=== PATIENT | male | born 1965 | race Caucasian/White ===

== ENCOUNTER 2022-02-23 14:59 | Inpatient (IN) | payer OTHER ==
[2022-02-23 17:20] VITALS: BMI 22.4
[2022-02-23] MEDS ORDERED: MAG HYDROX/AL HYDROX/SIMETH 30 ML UNIT-DOSE CUP PO PRN (18:33)
[2022-02-23] MEDS ORDERED: NICOTINE POLACRILEX 2 MG GUM BUC PRN (18:33)
[2022-02-23] MEDS ORDERED: IBUPROFEN 600 MG TABLET (FP) PO PRN (18:33)
[2022-02-23] MEDS ORDERED: MAGNESIUM CITRATE 300 ML BOTTLE PO PRN (18:33)
[2022-02-23] MEDS ORDERED: LOPERAMIDE HCL 2 MG CAPSULE PO PRN (18:33)
[2022-02-23] MEDS ORDERED: MAGNESIUM HYDROX 2400MG/30ML ORAL SUSPENSION 30 ML CUP PO PRN (18:33)
[2022-02-23] MEDS ORDERED: IBUPROFEN 400 MG TABLET (FP) PO PRN (18:33)
[2022-02-23] MEDS ORDERED: cloNIDine HCL 0.1 MG TABLET PO PRN (18:33)
[2022-02-23] MEDS ORDERED: methaDONE HCL 10 MG TABLET (FOR DETOX USE ONLY) PO ONE ×4 (18:33→23:00)
[2022-02-23] MEDS ORDERED: ACETAMINOPHEN 325 MG TABLET (FP) PO PRN ×2 (18:33)
[2022-02-23] MEDS ORDERED: BENZOCAINE/MENTHOL (CHLORASEPTIC ) LOZENGE MM PRN (18:33)
[2022-02-23] MEDS ORDERED: DICYCLOMINE HCL 10 MG CAPSULE PO PRN (18:33)
[2022-02-23] MEDS ORDERED: BISMUTH SUBSALICYLATE 524 MG/30 ML PO PRN (18:33)
[2022-02-23] MEDS ORDERED: NALOXONE HCL 0.4 MG/ML VIAL IM PRN (18:33)
[2022-02-23] MEDS ORDERED: TUBERCULIN PPD 5 TU/0.1ML SYRINGE (IN PATIENT USE ONLY) ID ONE (21:43)
[2022-02-23] MEDS: THIAMINE HCL 100 MG TABLET (FP) PO SCH (23:02)
[2022-02-23] MEDS: MELATONIN 5 MG TABLETS PO SCH (23:02)
[2022-02-24 09:07] LABS: HEMATOCRIT 39.7 % (35.4-49); HEMOGLOBIN 13.1 GM/dL (11.7-16.9); MCH 28.3 pg (25.7-33.7); MEAN CELL VOLUME 85.8 fl (80-96); MEAN PLT VOLUME 9.7 fl (7.5-11.1); PLATELET COUNT 243 10^3/uL (134-434); RBC 4.63 M/mm3 (4.00-5.60); WHITE BLOOD COUNT 11.3 K/mm3 (4.0-10.0)
[2022-02-24 09:12] LABS: ALBUMIN 3.3 g/dl (3.4-5.0); BLOOD UREA NITROGEN 13.6 mg/dL (7-18); CALCIUM 8.7 mg/dL (8.5-10.1)
[2022-02-24 09:15] LABS: CREATININE 0.6 mg/dL (0.55-1.3)
[2022-02-24 09:17] LABS: BILIRUBIN,TOTAL 0.3 mg/dL (0.2-1)
[2022-02-24] MEDS: METHOCARBAMOL 500 MG TABLET PO PRN ×2 (10:17→22:32)
[2022-02-24] MEDS: PRENATAL VITAMINS W/ FOLIC ACID TABLET (FP) PO SCH (10:17)
[2022-02-24] MEDS: NICOTINE 7 MG/24 HOURS TOPICAL PATCH TD SCH (10:36)
[2022-02-24] MEDS: DULoxetine HCL 30 MG CAPSULE.DR PO SCH (14:45)
[2022-02-24] MEDS: THIAMINE HCL 100 MG TABLET (FP) PO SCH (22:32)
[2022-02-24] MEDS: MELATONIN 5 MG TABLETS PO SCH (22:33)
[2022-02-25] MEDS ORDERED: BUPRENORPHINE HCL 150 MCG, BUPRENORPHINE HCL 75 MCG BC PRN (09:23)
[2022-02-25] MEDS ORDERED: cloNIDine HCL 0.1 MG TABLET PO ONE (09:23)
[2022-02-25] MEDS ORDERED: BUPRENORPHINE HCL 150 MCG, BUPRENORPHINE HCL 75 MCG BC ONE (09:23)
[2022-02-25] MEDS ORDERED: methaDONE HCL 10 MG TABLET (FOR DETOX USE ONLY) PO ONE ×2 (10:00)
[2022-02-25] MEDS ORDERED: BUPRENORPHINE HCL 75 MCG FILM BC ONE ×2 (10:26→17:55)
[2022-02-25] MEDS ORDERED: BUPRENORPHINE HCL 150 MCG FILM BC ONE ×2 (10:26→17:55)
[2022-02-25] MEDS: DULoxetine HCL 30 MG CAPSULE.DR PO SCH (10:27)
[2022-02-25] MEDS: PRENATAL VITAMINS W/ FOLIC ACID TABLET (FP) PO SCH (10:28)
[2022-02-25] MEDS: NICOTINE 7 MG/24 HOURS TOPICAL PATCH TD SCH (10:31)
[2022-02-25] MEDS: diazePAM 5 MG TABLET PO PRN ×2 (13:17→20:22)
[2022-02-25] MEDS: THIAMINE HCL 100 MG TABLET (FP) PO SCH (22:17)
[2022-02-25] MEDS: GABAPENTIN 400 MG CAPSULE PO SCH (22:17)
[2022-02-25] MEDS: METHOCARBAMOL 500 MG TABLET PO PRN (22:17)
[2022-02-25] MEDS: MELATONIN 5 MG TABLETS PO SCH (22:17)
[2022-02-26] MEDS ORDERED: BUPRENORPHINE HCL 150 MCG, BUPRENORPHINE HCL 75 MCG BC PRN
[2022-02-26] MEDS ORDERED: BUPRENORPHINE HCL 150 MCG FILM BC ONE ×2 (04:06→16:40)
[2022-02-26] MEDS ORDERED: BUPRENORPHINE HCL 75 MCG FILM BC ONE ×2 (04:06→16:41)
[2022-02-26] MEDS: BUPRENORPHINE HCL 150 MCG, BUPRENORPHINE HCL 75 MCG BC SCH ×2 (05:08→17:26)
[2022-02-26] MEDS: GABAPENTIN 400 MG CAPSULE PO SCH ×3 (05:08→22:05)
[2022-02-26] MEDS ORDERED: methaDONE HCL 10 MG TABLET (FOR DETOX USE ONLY) PO ONE (10:00)
[2022-02-26] MEDS: METHOCARBAMOL 500 MG TABLET PO PRN (10:11)
[2022-02-26] MEDS: DULoxetine HCL 30 MG CAPSULE.DR PO SCH (10:11)
[2022-02-26] MEDS: PRENATAL VITAMINS W/ FOLIC ACID TABLET (FP) PO SCH (10:11)
[2022-02-26] MEDS: diazePAM 5 MG TABLET PO PRN ×3 (10:11→22:06)
[2022-02-26] MEDS: NICOTINE 7 MG/24 HOURS TOPICAL PATCH TD SCH (10:13)
[2022-02-26 12:35] LABS: HEMATOCRIT 38.4 % (35.4-49); HEMOGLOBIN 12.8 GM/dL (11.7-16.9); MCHC 33.4 g/dl (32.0-35.9); MEAN PLT VOLUME 9.5 fl (7.5-11.1); PLATELET COUNT 205 10^3/uL (134-434); RBC 4.41 M/mm3 (4.00-5.60); WHITE BLOOD COUNT 9.4 K/mm3 (4.0-10.0)
[2022-02-26] MEDS: THIAMINE HCL 100 MG TABLET (FP) PO SCH (22:05)
[2022-02-26] MEDS: SUVOREXANT 10 MG TABLET PO PRN (22:05)
[2022-02-27] MEDS: GABAPENTIN 400 MG CAPSULE PO SCH ×3 (05:47→22:35)
[2022-02-27] MEDS: diazePAM 5 MG TABLET PO PRN (05:47)
[2022-02-27] MEDS: BUPRENORPHINE HCL 450 MCG FILM BC SCH ×2 (05:48→18:26)
[2022-02-27] MEDS ORDERED: methaDONE HCL 10 MG TABLET (FOR DETOX USE ONLY) PO ONE (10:00)
[2022-02-27] MEDS: METHOCARBAMOL 500 MG TABLET PO PRN ×2 (10:19→18:26)
[2022-02-27] MEDS: DULoxetine HCL 30 MG CAPSULE.DR PO SCH (10:19)
[2022-02-27] MEDS: cloNIDine HCL 0.1 MG TABLET PO PRN ×3 (10:19→22:35)
[2022-02-27] MEDS: PRENATAL VITAMINS W/ FOLIC ACID TABLET (FP) PO SCH (10:19)
[2022-02-27] MEDS: NICOTINE 7 MG/24 HOURS TOPICAL PATCH TD SCH (10:20)
[2022-02-27] MEDS: traZODone HCL 100 MG TABLET (FP) PO SCH (22:35)
[2022-02-27] MEDS: THIAMINE HCL 100 MG TABLET (FP) PO SCH (22:35)
[2022-02-28] MEDS: GABAPENTIN 400 MG CAPSULE PO SCH ×3 (06:10→21:54)
[2022-02-28] MEDS: BUPRENORPHINE/NALOXONE 4 MG/1 MG FILM PACKET SL SCH ×2 (06:11→18:01)
[2022-02-28] MEDS: DULoxetine HCL 30 MG CAPSULE.DR PO SCH (10:10)
[2022-02-28] MEDS: PRENATAL VITAMINS W/ FOLIC ACID TABLET (FP) PO SCH (10:10)
[2022-02-28] MEDS: METHOCARBAMOL 500 MG TABLET PO PRN (10:10)
[2022-02-28] MEDS: NICOTINE 7 MG/24 HOURS TOPICAL PATCH TD SCH (10:11)
[2022-02-28] MEDS: cloNIDine HCL 0.1 MG TABLET PO PRN ×2 (10:12→18:01)
[2022-02-28 13:13] VITALS: RESP 18
[2022-02-28] MEDS: THIAMINE HCL 100 MG TABLET (FP) PO SCH (21:54)
[2022-02-28] MEDS: traZODone HCL 100 MG TABLET (FP) PO SCH (21:54)
[2022-02-28] MEDS: SUVOREXANT 10 MG TABLET PO PRN (22:32)
[2022-03-01] MEDS: GABAPENTIN 400 MG CAPSULE PO SCH (05:36)
[2022-03-01] MEDS ORDERED: BUPRENORPHINE/NALOXONE 8 MG/2 MG FILM PACKET SL ONE (06:00)
[2022-03-01 09:08] VITALS: BP 94/64; PULSE 101; TEMP 98.4
[2022-03-01] MEDS: NICOTINE 7 MG/24 HOURS TOPICAL PATCH TD SCH (12:42)
[2022-03-01] MEDS: PRENATAL VITAMINS W/ FOLIC ACID TABLET (FP) PO SCH (12:42)
[2022-03-01] MEDS: DULoxetine HCL 30 MG CAPSULE.DR PO SCH (12:42)
== END 2022-03-01 09:50 | disposition home or self-care (01) | DRG 773 ==
LOC: YASAS 14:59 → Y6N 21:30 → UNDOADMIN 21:30
PROVIDERS: ADMIT Allergy & Immunology; ATTEND Surgery
PROC: HZ2ZZZZ Detoxification Services for Substance Abuse Treatment (ICD-10-PCS; principal; 2022-02-23)
DX: F11.23 Opioid dependence with withdrawal (principal); F17.210 Nicotine dependence, cigarettes, uncomplicated; F33.9 Major depressive disorder, recurrent, unspecified; F19.24 Other psychoactive substance dependence with psychoactive substance-induced mood disorder; F19.280 Other psychoactive substance dependence with psychoactive substance-induced anxiety disorder; F19.282 Other psychoactive substance dependence with psychoactive substance-induced sleep disorder; J44.9 Chronic obstructive pulmonary disease, unspecified; Z89.512 Acquired absence of left leg below knee; Z86.73 Personal history of transient ischemic attack (TIA), and cerebral infarction without residual deficits; Z62.810 Personal history of physical and sexual abuse in childhood
CPT/HCPCS: 36415; 80053; 85027; 86780; 93005; 93010; C9803-CS; J0735; U0003; U0005